=== PATIENT | female | born 1995 | race Caucasian/White ===

== ENCOUNTER 2018-01-01 17:22 | Emergency (ER) | payer OTHER ==
[~2018-01-01] VITALS: Ht 170.2 cm; Wt 55.0 kg
[2018-01-01 17:25] VITALS: BP 111/64
[2018-01-01] MEDS ORDERED: IBUPROFEN 600MG TABLET PO ONE (18:15)
== END 2018-01-01 18:42 | disposition home or self-care (01) ==
LOC: ER 17:37
DX: M54.5 Low back pain (principal); V49.88XA Car occupant (driver) (passenger) injured in other specified transport accidents, initial encounter; Y93.89 Activity, other specified; Y92.89 Other specified places as the place of occurrence of the external cause; Y99.8 Other external cause status
CPT/HCPCS: 99283